=== PATIENT | female | born 1935 | race Caucasian/White ===

== ENCOUNTER 2017-09-25 21:15 | Inpatient (IN) | payer OTHER ==
[~2017-09-25] VITALS: Ht 149.9 cm; Wt 44.5 kg
[~2017-09-25 21:15] MED LIST: ARICEPT5 MG; Apresoline 50MG TAB PO; Aricept 10 MG TABLET PO; CEFTIN250 MG/5 M PO; FENOFIBRATE54 MG; FLAGYL500MG PO; FLUCONAZOLE100 MG PO; INTESTINEX1 CA1 PO; LEVAQUIN750 MG PO; MULTIVITAMIN1 CAP; MULTIVITAMIN1 CAP PO; PEPCID20 MG PO; PROVENTIL3 ML/2.5 M IH; RISPERDAL0.25 MG; SIMVASTATIN20 MG; XANAX1 MG; ZYNCOF 20-400120 ML PO
[2017-09-28] MEDS ORDERED: PRAVASTATIN SOD10 MG PO (13:59)
[2017-09-28] MEDS ORDERED: MULTIVITAMINS1 EAC9 PO (13:59)
== END 2017-10-05 19:16 | disposition home health service (06) | DRG 570 ==
LOC: ER 21:15 → MEDI 09-26 10:31 → SEC-K 09-26 10:31 → MEDI 09-26 12:32
PROC: CP1Z1ZZ Planar Nuclear Medicine Imaging of Musculoskeletal System, All using Technetium 99m (Tc-99m) (ICD-10-PCS; 2017-09-26)
PROC: 0JB70ZZ Excision of Back Subcutaneous Tissue and Fascia, Open Approach (ICD-10-PCS; principal; 2017-09-27)
PROC: 0JBM0ZZ Excision of Left Upper Leg Subcutaneous Tissue and Fascia, Open Approach (ICD-10-PCS; 2017-09-27)
PROC: 0JBL0ZZ Excision of Right Upper Leg Subcutaneous Tissue and Fascia, Open Approach (ICD-10-PCS; 2017-09-27)
PROC: CW1NLZZ Planar Nuclear Medicine Imaging of Whole Body using Gallium 67 (Ga-67) (ICD-10-PCS; 2017-09-27)
PROC: 05H333Z Insertion of Infusion Device into Right Innominate Vein, Percutaneous Approach (ICD-10-PCS; 2017-09-27)
PROC: 0JB70ZZ Excision of Back Subcutaneous Tissue and Fascia, Open Approach (ICD-10-PCS; 2017-10-04)
PROC: 0JBM0ZZ Excision of Left Upper Leg Subcutaneous Tissue and Fascia, Open Approach (ICD-10-PCS; 2017-10-04)
PROC: 0JBL0ZZ Excision of Right Upper Leg Subcutaneous Tissue and Fascia, Open Approach (ICD-10-PCS; 2017-10-04)
DX: L89.223 Pressure ulcer of left hip, stage 3 (principal); N39.0 Urinary tract infection, site not specified; N17.8 Other acute kidney failure; L89.213 Pressure ulcer of right hip, stage 3; L89.152 Pressure ulcer of sacral region, stage 2; G30.1 Alzheimer's disease with late onset; F02.80 Dementia in other diseases classified elsewhere, unspecified severity, without behavioral disturbance, psychotic disturbance, mood disturbance, and anxiety; Z74.01 Bed confinement status; R13.19 Other dysphagia; I10 Essential (primary) hypertension; E86.0 Dehydration; K29.60 Other gastritis without bleeding; B96.4 Proteus (mirabilis) (morganii) as the cause of diseases classified elsewhere; B95.2 Enterococcus as the cause of diseases classified elsewhere; B37.2 Candidiasis of skin and nail; Z16.24 Resistance to multiple antibiotics; B96.5 Pseudomonas (aeruginosa) (mallei) (pseudomallei) as the cause of diseases classified elsewhere; B95.62 Methicillin resistant Staphylococcus aureus infection as the cause of diseases classified elsewhere

== ENCOUNTER 2018-01-16 15:43 | Emergency (ER) | payer OTHER ==
[~2018-01-16] VITALS: Ht 152.4 cm; Wt 49.9 kg
[~2018-01-16 15:43] MED LIST changes: +MULTIVITAMINS1 EAC9 PO; +PRAVASTATIN SOD10 MG PO
== END 2018-01-16 21:06 | disposition home or self-care (01) ==
LOC: ER 15:43
DX: K52.89 Other specified noninfective gastroenteritis and colitis (principal); J11.1 Influenza due to unidentified influenza virus with other respiratory manifestations; G30.8 Other Alzheimer's disease; F02.80 Dementia in other diseases classified elsewhere, unspecified severity, without behavioral disturbance, psychotic disturbance, mood disturbance, and anxiety; Z74.01 Bed confinement status

== ENCOUNTER 2018-02-17 13:28 | Inpatient (IN) | payer OTHER ==
[~2018-02-17] VITALS: Ht 149.9 cm; Wt 40.8 kg
== END 2018-03-03 17:46 | disposition expired | DRG 871 ==
LOC: ER 13:28 → MEDI 02-18 09:01 → SEC-K 02-18 09:01 → MEDI 02-18 10:20
PROC: 4A12X4Z Monitoring of Cardiac Electrical Activity, External Approach (ICD-10-PCS; 2018-02-18)
PROC: 3E0F7GC Introduction of Other Therapeutic Substance into Respiratory Tract, Via Natural or Artificial Opening (ICD-10-PCS; 2018-02-21)
PROC: 05H633Z Insertion of Infusion Device into Left Subclavian Vein, Percutaneous Approach (ICD-10-PCS; 2018-02-21)
PROC: 30233N1 Transfusion of Nonautologous Red Blood Cells into Peripheral Vein, Percutaneous Approach (ICD-10-PCS; 2018-02-25)
PROC: 3E0436Z Introduction of Nutritional Substance into Central Vein, Percutaneous Approach (ICD-10-PCS; 2018-02-27)
PROC: 4A033R1 Measurement of Arterial Saturation, Peripheral, Percutaneous Approach (ICD-10-PCS; principal; 2018-02-28)
DX: A41.9 Sepsis, unspecified organism (principal); J69.0 Pneumonitis due to inhalation of food and vomit; L89.154 Pressure ulcer of sacral region, stage 4; L89.224 Pressure ulcer of left hip, stage 4; L89.214 Pressure ulcer of right hip, stage 4; N39.0 Urinary tract infection, site not specified; J90 Pleural effusion, not elsewhere classified; E86.0 Dehydration; G30.8 Other Alzheimer's disease; F02.80 Dementia in other diseases classified elsewhere, unspecified severity, without behavioral disturbance, psychotic disturbance, mood disturbance, and anxiety; Z74.01 Bed confinement status; D64.89 Other specified anemias; B96.5 Pseudomonas (aeruginosa) (mallei) (pseudomallei) as the cause of diseases classified elsewhere; B96.4 Proteus (mirabilis) (morganii) as the cause of diseases classified elsewhere; B96.1 Klebsiella pneumoniae [K. pneumoniae] as the cause of diseases classified elsewhere; B95.2 Enterococcus as the cause of diseases classified elsewhere; B95.62 Methicillin resistant Staphylococcus aureus infection as the cause of diseases classified elsewhere; R09.02 Hypoxemia; Z66 Do not resuscitate; R13.19 Other dysphagia